=== PATIENT | female | born 1970 | race Caucasian/White ===

== ENCOUNTER 2023-09-17 19:29 | Emergency (ER) | payer SELFPAY ==
[~2023-09-17] VITALS: Ht 157.5 cm; Wt 70.3 kg
[2023-09-17 19:41] VITALS: BP 150/79; PULSE 87; RESP 16; TEMP 98.2; O2SAT 97
[2023-09-17] MEDS: KETOROLAC 30 MG/ML VIAL IM ONE (20:53)
[2023-09-17] MEDS: ONDANSETRON 4 MG ODT PO ONE (20:54)
[2023-09-17 22:34] LABS: APPEARANCE,URINE CLEAR (CLEAR); BILIRUBIN,URINE NEGATIVE (NEGATIVE); BLOOD, URINE 2+ (NEGATIVE); COLOR,URINE YELLOW (YELLOW); LEUKOCYTE ESTERASE ,URINE NEGATIVE (NEGATIVE); NITRITE, URINE NEGATIVE (NEGATIVE); PH,URINE 6.5 (5.0-9.0); PROTEIN,URINE NEGATIVE (NEGATIVE); UGLUCOSE NEGATIVE (NEGATIVE); UROBILINOGEN,URINE 0.2 EU/dL (0.2 - 1)
[2023-09-17 22:39] LABS: WBC,URINE 0-5 /HPF (0-5)
[2023-09-17 22:40] LABS: BACTERIA,URINE FEW /HPF (None Seen); MUCUS,URINE 1+ /LPF (None Seen); SQUAMOUS EPITHELIAL CELL,UR 4-10 (MOD) /LPF (0-3 (FEW))
[2023-09-17 22:52] LABS: BASOPHILS % (AUTO) 0.1 % (0.0-2.0); EOSINOPHILS % (AUTO) 0.1 % (0.0-4.0); HEMATOCRIT 35.9 % (36-48); HEMOGLOBIN 12.5 g/dL (12.0-16.0); LYMPHOCYTES % (AUTO) 9.4 % (20.5-51.1); MEAN CORPUSCULAR HEMOGLOBIN 30 pg (27-31); MEAN CORPUSCULAR HGB CONC 35 g/dL (33-37); MEAN CORPUSCULAR VOLUME 87.5 fL (80-94); MONOCYTES # (AUTO) 0.5 K/uL (0.8-1.0); MONOCYTES % (AUTO) 4.8 % (1.7-9.3); NEUTROPHILS # (AUTO) 8.8 K/uL (1.8-7.7); NEUTROPHILS % (AUTO) 85.6 % (42.2-75.2); PLATELET COUNT (AUTO) 266 K/uL (140-450); WHITE BLOOD COUNT (AUTO) 10.3 K/uL (4.8-10.8)
[2023-09-17 23:01] LABS: ANION GAP 13.9 (8-16); CALCIUM 9.1 mg/dL (8.5-10.1); CARBON DIOXIDE 24.5 mmol/L (21-32); CREATININE 1.1 mg/dL (0.6-1.3); POTASSIUM 3.4 mmol/L (3.5-5.1)
[2023-09-17 23:05] LABS: ALBUMIN 3.6 g/dL (3.4-5.0); BILIRUBIN,DIRECT 0.1 mg/dL (0.0-0.3); TOTAL BILIRUBIN 0.3 mg/dL (0.0-1.0); TOTAL PROTEIN, SERUM 8.3 g/dL (6.4-8.2)
[2023-09-17 23:45] VITALS: O2SAT 97
[2023-09-17] MEDS: MORPHINE SULFATE 4 MG/ML SYR IVP ONE (23:56)
[2023-09-18] MEDS ORDERED: ACETAMINOPHEN EXTRA STRENGTH 500 MG TAB ONE (01:37)
[2023-09-18] MEDS: ACETAMINOPHEN EXTRA STRENGTH 500 MG TAB PO ONE (02:02)
[2023-09-18] MEDS ORDERED: AMLO5TAB PO (02:23)
[2023-09-18] MEDS ORDERED: HYDR-3298 PO (02:24)
[2023-09-18] MEDS ORDERED: cefTRIAXone 1,000 MG VIAL ONE (02:26)
[2023-09-18 02:41] LABS: LACTIC ACID 1.2 mmol/L (0.4-2.0)
[2023-09-18 02:46] VITALS: O2SAT 94
[2023-09-18 02:46] LABS: AMPHETAMINE, URINE NEGATIVE ng/ml (NEG <=1000); BARBITURATE, URINE NEGATIVE ng/ml (NEG <=200); BENZODIAZEPINE, URINE NEGATIVE ng/mL (NEG <=200); CANNABINOID, URINE NEGATIVE ng/mL (NEG <=50); COCAINE, URINE NEGATIVE ng/mL (NEG <=300); OPIATE, URINE NEGATIVE ng/mL (NEG <=2000); PHENCYCLIDINE SCREEN,URINE NEGATIVE ng/mL (NEG <=25)
[2023-09-18] MEDS ORDERED: IBUPROFEN 600 MG TAB ONE (02:48)
[2023-09-18] MEDS: IBUPROFEN 600 MG TAB PO ONE (02:56)
[2023-09-18] MEDS: NACL 0.9% 1,000 ML IV ONE (03:32)
[2023-09-18] MEDS ORDERED: ONDANSETRON 4 MG/2 ML VIAL IVP PRN (06:05)
[2023-09-18] MEDS ORDERED: MORPHINE SULFATE 2 MG/ML SYR IVP PRN (06:05)
[2023-09-18] MEDS ORDERED: ACETAMINOPHEN 325 MG TAB PO PRN (06:05)
[2023-09-18] MEDS: NACL 0.9% 1,000 ML IV SCH (06:50)
[2023-09-18] MEDS: HYDROcodone/APAP 5/325 MG 1 TAB TAB PO PRN (06:59)
[2023-09-18] MEDS: MORPHINE SULFATE 4 MG/ML SYR IVP ONE (11:46)
[2023-09-18 12:00] VITALS: BP 118/63; PULSE 74; RESP 14; TEMP 98; O2SAT 98
== END 2023-09-18 12:00 | disposition short-term general hospital (02) ==
LOC: MED 19:29 → MTU 09-18 06:07 → UNDOADMIN 09-18 06:07 → MTU 09-18 06:36 → MED 09-18 12:00
DX: N28.89 Other specified disorders of kidney and ureter (principal); R31.9 Hematuria, unspecified; E87.6 Hypokalemia; E87.1 Hypo-osmolality and hyponatremia; Z79.899 Other long term (current) drug therapy
CPT/HCPCS: 36415; 71045; 71275; 74176; 74177; 80048; 80076; 80305; 81001; 81025; 82378; 83605; 83690; 85025; 87040; 96361; 96365; 96372; 96375; 96376; 99285; J0696; J1885; J2270; J7030; Q0092; Q0162; Q9967